=== PATIENT | female | born 1995 | race African-American/Black ===

== ENCOUNTER 2018-02-06 03:04 | Inpatient (IN) | payer OTHER ==
[~2018-02-06] VITALS: Ht 165.1 cm; Wt 111.6 kg
--- NOTE | 2018-02-06 14:01 | Operative Report ---
Operative/Inv Procedure Report Surgery Date: 02/06/18 Name of Procedure: Laparoscopic vertical sleeve gastrectomy a laparoscopic cholecystectomy with da Ron Robot Pre-Operative Diagnosis: Morbid obesity, cholelithiasis Post-Operative Diagnosis: Same Estimated Blood Loss: less than 50ml Surgeon/Return Agent Airport: Lemuel MENDEZ,Chandana Gonzalez Anesthesia: general endotracheal tube, block Implants: LR Urine Output: na Drains: none Specimens: portion of stomach, gallbladder Complications: none Condition: stable Operative Indication: see history and physical Operative/Procedure Note Note: After informed consent and proper identification the patient was taken the operating room placed on the operating table in supine position. Venodyne stockings were applied. She underwent a general endotracheal anesthetic. Anesthesia performed a SEN Block. We entered the abdominal cavity using a 5 mm Stortz laparoscope through an 8 mm robotic the support through an incision just a centimeter above and lateral to the midline umbilicus. Insufflated the abdomen 14 mm associated pressure and had excellent visualization. We placed 2 ports on the left side no horizontal fashion most laterally an 8 mm robotic port in between the 2 Previous Placed ports a 12 mm trocar. On the right side to the right of the umbilicus replaced a 8 mm trocar. We placed a Oswaldo liver retractor in the upper midline to retract the left lobe of the liver. Next we docked the robot placing arm to to the trocar just to the left of the midline and placing the camera in targeting the robot once targeted we attached arms 1 3 and 4 and on one we placed a fenestrated bipolar forceps in arm 3 a vessel sealer in arm for a checkup retractor. With anesthesia to decompress his stomach with an orogastric tube and then remove it we took down the vascular attachments along the greater curvature the stomach 6 cm from the pylorus opposite the angularis all the way up to the angle of Hiss and reflected the fundus of the stomach off the left kit. We could clearly see the splenic vessels pancreas and spleen and were careful not to injure them we did not see a significant hiatal hernia. We then had anesthesia place a 40 [place] bougie and using this as a guide we used the robotic stapler 45 mm cartridges firing 3 green cartridges with seam guard followed by 4 blue cartridges with seam guard to completely transect the remnant stomach from the newly created sleeve. Next we re-targeted robot and place the camera through trocar number three. we grasped the fundus of the gallbladder with the tip up grasper through arm number one and we placed the cautier forcep in arm two and pulled the infundibulum laterally. We had excellent visualization of the cystic duct and artery. We used hemoclips clips to place proximally and distally on the cystic duct and cystic and then divided them cautery. We dissected the gallbladder off the liver and suctioned irrigated the right upper quadrant, there was no significant bleeding. we then placed the remnant stomach and the gallbladder into a 10 Endo catch bag and pulled out through the 12 mm port removed the liver retractor the bougie all sponge and instruments. We did not place any sponges or needles within the abdominal cavity. The patient tolerated the procedure without complications were closed the skin incisions with 4-0 Monocryl subcuticular stitches and glue and she was extubated and taken to recovery room in stable condition Findings: Normal liver large gallstone no significant hiatal hernia
--- NOTE | 2018-02-06 14:25 | Admission Core Measures ---
Acute Coronary Syndrome (CM) ACS Core Measures Acute Coronary Syndrome Diagnosis No Congestive Heart Failure (NEW) CHF Core Measures Congestive Heart Failure Diagnosis No Cerebrovascular Accident CVA Core Measures CVA/TIA Diagnosis No Venous Thromboembolism VTE Core Sybil (View Protocol) VTE Risk Factors Surgery No Mechanical VTE Prophylaxis d/t N/A MechProphylax Ordered No VTE Pharm Prophylaxis d/t NA PharmProphylax ordered Problem List As ranked by this Provider includes Assessment & Plan 1. Morbid obesity 2. Cholelithiasis HOME MEDS Home Med List No Known Home Medications
--- NOTE | 2018-02-06 14:29 | Surg Short-stay <48hrs Dis Sum ---
Visit Information Visit Dates Admission Date: 02/06/18 Discharge Date: 02/07/18 Surgical Short Stay DC Summary Admission Diagnosis: Morbid obesity, cholelithiasis Final Diagnosis: RAUL s/p laparoscopic vertical sleeve gastrectomy a laparoscopic cholecystectomy with da Ron Robot Procedure(s): Laparoscopic vertical sleeve gastrectomy and laparoscopic cholecystectomy with da Ron Robot Summary/Significant Findings: Patient presented for an electively scheduled laparoscopic vertical sleeve gastrectomy and laparoscopic cholecystectomy with da Ron Robot by Dr.Craig Hdez on 02/06/18 due to morbid obesity and cholelithiasis. Started on stage 1 diet post-operatively. Diet was advanced and tolerated with return of bowel function. On the day of discharge, patient was tolerating a diet, ambulating without difficulty and pain was controlled with oral analgesics. Condition at Discharge: Stable Discharge Disposition: home or self care Discharge instructions provided to patient/family: Yes Post discharge follow-up plan: 1-[address] Hdez
--- NOTE | 2018-02-06 14:32 | Patient Discharge Instructions ---
Discharge Instructions General Discharge Information You were seen/treated for: Morbid obesity, cholelithiasis You had these procedures: Laparoscopic vertical sleeve gastrectomy and laparoscopic cholecystectomy with da Ron Robot on 02/06/18 Watch for these problems: fever>101.3, increased pain, redness/swelling/drainage, shortness of breath, chest pains, dizziness No bath, but you may shower: Yes Other wound care: Skin glue covers and protects incisions. ok to shower. keep incisions clean & dry. Diet Continue normal diet: No Recommended Diet: Bariatric Additional DIET Information: Weekly bariatric stage diet advancement as tolerated, as directed Activity Full Activity/No Limits: No Activity Self Limited: Yes Pounds, do NOT lift more than: 10 Other activity limits: No heavy lifting or strenous activity Acute Coronary Syndrome Inclusion Criteria At DC or during hospital stay patient has or had the following: ACS DIAGNOSIS No Discharge Core Measures Meds if any: Prescribed or Continued at Discharge Meds if any: NOT Prescribed or Continued at Discharge Congestive Heart Failure Inclusion Criteria At DC or during hospital stay patient has or had the following: CHF DIAGNOSIS No Discharge Core Measures Meds if any: Prescribed or Continued at Discharge Meds if any: NOT Prescribed or Continued at Discharge Cerebrovascular accident Inclusion Criteria At DC or during hospital stay patient has or had the following: CVA/TIA Diagnosis No Discharge Core Measures Meds if any: Prescribed or Continued at Discharge Meds if any: NOT Prescribed or Continued at Discharge Venous thromboembolism Inclusion Criteria VTE Diagnosis No VTE Type NONE VTE Confirmed by (Test) NONE Discharge Core Measures - Per Current guidelines, there needs to be overlap - treatment for the first 5 days of Warfarin therapy. - If discharged on Warfarin prior to 5 days of - overlap therapy, the patient will need to be - assessed for post discharge needs including - *Post discharge parental anticoagulation - *Warfarin and/or parental anticoagulation education - *Follow up date to check INR post discharge At least 5 days overlap therapy as Inpatient No Meds if any: Prescribed or Continued at Discharge Note: Overlap Therapy is Warfarin and Anticoagulant Meds if any: NOT Prescribed or Continued at Discharge
[2018-02-06] MEDS ORDERED: HYCET 7.5 MG-3473 ML PO (14:48)
[2018-02-06] MEDS ORDERED: PROTONIX40 M3 PO (14:48)
[2018-02-06 16:00] VITALS: BP 148/88
--- NOTE | 2018-02-06 17:02 | PN- Student ---
Claire Bishop 02/06/18 1760: Subjective Subjective: Pt is feeling well post-operatively. She is still tired but is not complaining of any pain at this time. Had mild nausea, which has since resolved with anti- nausea wrist bands. She has not yet ambulated or gone to the bathroom. Denies any CP, SOB, difficulty breathing, headache or dizziness. Objective Objective: Vitals: BP:148/88 Pulse:76 O2:96% on RA RR: 16 and Temp 97.6 General: Middle aged female, lying in bed, appears comfortable and NAD. Cardio: Regular rate and rhythm. S1 and S2. No murmurs rubs or gallops. Pulm: clear breath sounds with no wheezes, rhonchi or rales. Abdomen: Insicions clean and intact. Abdomen soft and non-distended. Normoactive bowel sounds. Midly tender to palpation throuhgout. Extremities: Calves are soft and non-tender to palpation. Results Results: Laboratory Tests 02/06/18 1004: Urine Test NEGATIVE Assessment/Plan Assessment: 22 year old female POD#0 s/p robotic sleeve gastrectomy and laparoscopic cholecystectomy for morbid obestity and cholelithiasis. Vital signs are stable and pt is afebrile. Pt tolerated the procedure well and is due to void. Plan: Continue with pain control prn. Zofran prn for nausea. UGI study in the am if nausea persists. Continue Cefazolin and Flagyl. Bariatric Stage 1 diet today. NPO after midnight for possible UGI series. Protonix for GI ppx. Simethicone for gas pain. Hep SQ, ALPs, and ambulation for DVT ppx. Encourage incentive spirometry use. Follow up w am labs. Discuss with Dr Hdez and sugrical PAs. Chelsea Braun 02/06/18 5198: Assessment/Plan Plan: POC- agree with above pt just starting to have some nausea when I saw her but had been taking some sips of clears Denies CP/SOB abd- appropriately tender, incisions clean and dry Bariatric Stage 1 diet NPO after midnight for possible UGI series in am if still having nausea encourage ambulation
[2018-02-06 20:39] VITALS: BP 130/80
[2018-02-07 06:33] VITALS: BP 110/80
--- NOTE | 2018-02-07 07:43 | PN- Student ---
amandoClaire 02/07/18 0787: Subjective Subjective: Pt feeling well this morning. Pain is minimal at a 3/10. Experienced gas pain last night that radiated up to her shoulders that resolved with Simethicone. Tolerated stage 1 bariatric diet yesterday without any nausea or vomiting. Continues to have no nausea this morning. Ambulating and voiding without difficulty. Denies any CP, SOB, difficulty breathing, LOVE, or dizziness. Objective Objective: Vitals: See EMR Gen: Middle aged female, lying in bed, comfortable, NAD. Cardio: Reg rate adn rhythm. S1 and S2. No murmurs, rubs or gallops. Pulm: Clear breath sounds with no wheezes, rhonchi or rales. Abdomen: Incisions are intact and clean. No excess warmth or discharge. Normoactive bowel sounds. Softly distended. Mildly tender to palpation throughout. Extremities: Calves are soft and non-tender bilaterally. Results Results: Laboratory Tests 02/07/18 0720: Sodium Pending, Potassium Pending, Chloride Pending, Carbon Dioxide Pending, Anion Gap Pending, Glucose Pending, Magnesium Pending, CBC w Diff Pending, WBC Pending, RBC Pending, Hgb Pending, Hct Pending, MCV Pending, MCH Pending, MCHC Pending, RDW Pending, Plt Count Pending, MPV Pending 02/06/18 1004: Urine Test NEGATIVE Assessment/Plan Assessment: 22 year old F POD#1 s/p robotic sleeve gastrectomy and laparoscopic cholecystectomy for morbid obesity and cholelithiasis. Pt has no nausea, tolerated the procedure well and pain is well controlled. Vital signs are stable and pt is afebrile. Plan: Continue with pain control prn. Zofran prn for nausea. Cefazolin and Flagyl doses have been completed. Will discuss need for UGI this am. NPO since midnight. Continue NPO until results of UGI study are available if it is performed. Resume Bariatric stage 1 diet afrer results are available. Protonix for GI ppx. Simethicone for gas pain. Hep SQ, ALPs, and ambulation for DVT ppx. Encourage incentive spirometry use and ambulation. Follow up w am labs when available. Discuss with Dr Hdez and wiley Childs. Marcell Beaver 02/07/18 7185: Resident Review Statement Resident Statement: examined this patient, amended to note Other Findings: Patient seen and evaluated, she has no pain, no nausea, tolerated her stage I last night without difficulty, no acute events overnight. We will cancel upper GI series this morning, placed on a bariatric stage I diet for breakfast and reevaluate her after lunch for potential discharge home today
[2018-02-07 08:37] LABS: ABSOLUTE BASOPHIL COUNT 0 /CUMM (0.0-0.2); ABSOLUTE EOSINOPHIL COUNT 0 /CUMM (0.0-0.7); ABSOLUTE GRANULOCYTE CT 10.7 /CUMM (1.4-6.5); ABSOLUTE LYMPH COUNT 0.6 /CUMM (1.2-3.4); ABSOLUTE MONOCYTE COUNT 0.9 /CUMM (0.10-0.60); BASOPHIL % 0.2 % (0.0-2.0); EOSINOPHIL % 0 % (0-5); GRANULOCYTE % 87.6 % (42.2-75.2); HEMATOCRIT 36.6 % (37-47); MEAN CORPUSCULAR HGB 29.7 PG (27.0-31.0); MEAN CORPUSCULAR HGB CONC 33.9 G/DL (33.0-37.0); MEAN CORPUSCULAR VOLUME 87.5 FL (81.0-99.0); MEAN PLATELET VOLUME 8.9 FL (7.4-10.4); PLATELET COUNT 312 /CUMM (130-400); RBC DISTRIBUTION WIDTH 12.9 % (11.5-14.5); RED BLOOD CELL CT 4.18 /CUMM (4.20-5.40)
[2018-02-07 10:18] LABS: WHITE BLOOD CELL COUNT 12.2 /CUMM (4.8-10.8)
[2018-02-07] MEDS ORDERED: HYCET 7.5 MG-3473 ML PO (11:44)
[2018-02-07] MEDS ORDERED: PROTONIX40 M3 PO (11:44)
[2018-02-07 14:22] VITALS: BP 147/93
== END 2018-02-07 14:43 | DRG 621 ==
LOC: SDA 03:04 → ENRESERV 14:51 → ENTRNSPT 15:28 → EDTRNSPTSTS 15:40 → EDTRNSPT 15:40 → 2NB 15:48 → CMPTRNSPT 15:55 → ENPENDDIS 02-07 11:37 → 2NB 02-07 14:43
PROVIDERS: Physician Assistant Surgical
PROC: 0FT44ZZ Resection of Gallbladder, Percutaneous Endoscopic Approach (ICD-10-PCS; principal; 2018-02-06)
PROC: 8E0W4CZ Robotic Assisted Procedure of Trunk Region, Percutaneous Endoscopic Approach (ICD-10-PCS; principal; 2018-02-06)
PROC: 0DB64Z3 Excision of Stomach, Percutaneous Endoscopic Approach, Vertical (ICD-10-PCS; principal; 2018-02-06)
PROC: 3E0T3BZ Introduction of Anesthetic Agent into Peripheral Nerves and Plexi, Percutaneous Approach (ICD-10-PCS; 2018-02-06)
DX: E66.01 Morbid (severe) obesity due to excess calories (principal); Z68.41 Body mass index [BMI] 40.0-44.9, adult; K80.20 Calculus of gallbladder without cholecystitis without obstruction; Z87.891 Personal history of nicotine dependence
CPT/HCPCS: 2NBP; 36592; 81025; J0131; J0690; J1100; J1644; J1885; J2405; J3490; J7042; S5012